=== PATIENT | female | born 1990 | race Caucasian/White ===

== ENCOUNTER 2019-04-21 15:59 | Emergency (ER) | payer OTHER ==
[2019-04-21] MEDS ORDERED: BABY ASPIRIN 81 MG CHEW PO ONE (16:58)
[2019-04-21] MEDS ORDERED: BABY ASPIRIN 81 MG CHEW ONE (17:01)
[2019-04-21 17:30] LABS: Absolute Neutrophil Ct (ANC) 3.14 (1.4-6.9); Hematocrit 40.2 % (35-47); Hemoglobin 13.9 gm/dl (12.0-16.0); Mean Corpuscular Hemoglobin 30.1 pg (26-32); Mean Corpuscular Hgb Concent. 34.6 g/dl (32-36); Platelet Count 236 K/mm3 (150-450); Red Blood Count 4.62 M/mm3 (4.1-5.4); Red Cell Distribution Width 12.4 % (11.5-14.0); White Blood Count 4.2 K/mm3 (4.0-10.5)
[2019-04-21 17:42] LABS: ALBUMIN 4.4 g/dL (3.5-5.0); ALKALINE PHOSPHATASE 55 U/L (38-126); ANION GAP 12.8 MEQ/L (5-15); BLOOD UREA NITROGEN 6 mg/dL (7-17); CHLORIDE 107 mmol/L (98-107); Calcium 9.5 mg/dL (8.4-10.2); Carbon Dioxide 24 mmol/L (22-30); Creatinine 1 0.53 mg/dL (0.52-1.04); Glucose 99 mg/dL (74-106); Potassium 3.9 mmol/L (3.5-5.1); SGOT/AST 44 U/L (14-36); SGPT/ALT 64 U/L (0-35); SODIUM 140 mmol/L (137-145); Total Protein 7.7 g/dL (6.3-8.2)
[2019-04-21 18:22] LABS: Group A Strep NEGATIVE (NEGATIVE); INFLUENZA A POSITIVE (NEGATIVE); INFLUENZA B NEGATIVE (NEGATIVE); RESPIRATORY SYNCTIAL VIRUS NEGATIVE (Negative)
[2019-04-21 18:46] LABS: Appearance CLOUDY (CLEAR); Bilirubin NEGATIVE (NEGATIVE); Blood NEGATIVE Ery/ul (0-5); Epithelial Cells RARE /HPF (FEW); Glucose NEGATIVE (NEGATIVE); Ketones NEGATIVE (NEGATIVE); Leukocyte Esterase TRACE (NEGATIVE); Mucus SLIGHT /HPF (NEGATIVE); Nitrite NEGATIVE (NEGATIVE); Protein,Urine Dip NEGATIVE (Negative); Specific Gravity 1.012 (1.005-1.025); Urobilinogen NEGATIVE mg/dL (0-1)
[2019-04-21] MEDS ORDERED: Sodium Chloride 0.9% 1000 ML 1,000 ML IV STA (18:51)
[2019-04-21] MEDS ORDERED: Sodium Chloride 0.9% 1000 ML 1,000 ML ONE (18:57)
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
[2019-04-21 20:04] VITALS: O2SAT 97
[2019-04-21] MEDS ORDERED: Tamiflu 75MG Capsule PO ONE ×2 (20:06→20:07)
[2019-04-21 20:11] VITALS: BP 125/93; PULSE 100
[2019-04-21 23:36] LABS: Lymphocytes 20 % (24-44); Monocyte 6 % (0.0-12.0); Neutrophils 74 % (36.0-66.0); Total Cells Counted 100
[2019-04-21 23:37] LABS: Platelet Estimate NORMAL (NORMAL)
--- NOTE | 2019-04-22 08:43 | XRAY ---
Indication: Fever and cough. Comparison: December 09, 2017. Portable chest again demonstrates normal heart, lungs, and bony thorax with incidental tiny calcified granulomas.
== END 2019-04-21 20:18 | disposition home or self-care (01) ==
LOC: ED 15:59
DX: J10.1 Influenza due to other identified influenza virus with other respiratory manifestations (principal); R07.89 Other chest pain
CPT/HCPCS: 36000; 36415; 71045; 80053; 81001; 84484; 84703; 85025; 85379; 87631; 87651; 93005; 93041; 94760; 96360; 99284; A9270-GY

== ENCOUNTER 2019-06-06 09:15 | Emergency (ER) | payer OTHER ==
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
[2019-06-06] MEDS ORDERED: TORAdol 30 mg Injection IV ONE (09:45)
[2019-06-06] MEDS ORDERED: Sodium Chloride 0.9% 1000 ML 1,000 ML IV STA (09:45)
[2019-06-06] MEDS ORDERED: Hydromorphone 1 mg/ml Ampule IV ONE ×2 (09:45→11:31)
[2019-06-06] MEDS ORDERED: Zofran 4 MG/2 ML VIAL IV ONE (09:45)
[2019-06-06] MEDS ORDERED: TORAdol 30 mg Injection ONE (09:56)
[2019-06-06] MEDS ORDERED: Zofran 4 MG/2 ML VIAL ONE (09:56)
[2019-06-06] MEDS ORDERED: Sodium Chloride 0.9% 1000 ML 1,000 ML ONE (09:57)
[2019-06-06] MEDS ORDERED: Hydromorphone 1 mg/ml Ampule ONE ×2 (09:57→11:32)
--- NOTE | 2019-06-06 10:47 | XRAY ---
Indication: Right abdomen/flank pain. Multiple contiguous axial images obtained through the abdomen and pelvis without contrast using renal stone protocol. Comparison: July 24, 2016. Lung bases again demonstrates minimal subsegmental atelectasis/scarring without infiltrate or effusion. Heart is not enlarged. New 3 mm distal right ureter calculus just proximal to the UVJ. Proximal right ureter minimally prominent along with minimal hydronephrosis consistent with partial obstructive uropathy. No perinephric fluid. Noncontrasted stomach and bowel loops appear nonobstructed. Normal appendix. There has been interval cholecystectomy. Stable calcified splenic granulomas. Remaining liver, pancreas, spleen, adrenal glands, kidneys, ureters, bladder, uterus, and aorta appear unremarkable for noncontrast exam. Osseous structures intact. Impression: New 3 mm distal right ureter calculus producing minimal partial obstruction.
[2019-06-06 10:52] LABS: Appearance CLOUDY (CLEAR); Bilirubin NEGATIVE (NEGATIVE); Blood LARGE Ery/ul (0-5); Epithelial Cells RARE /HPF (FEW); Glucose NEGATIVE (NEGATIVE); Ketones NEGATIVE (NEGATIVE); Leukocyte Esterase NEGATIVE (NEGATIVE); Mucus SLIGHT /HPF (NEGATIVE); Nitrite NEGATIVE (NEGATIVE); Protein,Urine Dip 30 (Negative); Specific Gravity 1.015 (1.005-1.025); Urobilinogen NEGATIVE mg/dL (0-1)
[2019-06-06 10:56] VITALS: PULSE 71
[2019-06-06 10:59] LABS: Bacteria FEW /HPF (NEGATIVE); RBC >101 /HPF (0-2)
[2019-06-06 11:46] VITALS: BP 134/74; O2SAT 96
== END 2019-06-06 12:09 | disposition home or self-care (01) ==
LOC: ED 09:15
DX: N20.1 Calculus of ureter (principal); R10.31 Right lower quadrant pain; R10.9 Unspecified abdominal pain; R11.0 Nausea; Z79.899 Other long term (current) drug therapy; I10 Essential (primary) hypertension; K58.9 Irritable bowel syndrome, unspecified
CPT/HCPCS: 36000; 74176; 81001; 87086; 96360; 96374; 96375; 96376; 99284; J1170; J1885; J2405

== ENCOUNTER 2020-11-30 00:10 | Emergency (ER) | payer OTHER ==
[2020-11-30] MEDS ORDERED: solu-MEDROL 125 MG, Sterile H2O 10 ml 2 ML IM ONE ×2 (00:29)
[2020-11-30] MEDS ORDERED: BENADRYL 50 MG/ML IM ONE (00:29)
[2020-11-30] MEDS ORDERED: Pepcid 20 MG PO ONE (00:29)
[2020-11-30] MEDS ORDERED: solu-MEDROL ONE (00:36)
[2020-11-30] MEDS ORDERED: Pepcid 20 MG ONE (00:36)
[2020-11-30] MEDS ORDERED: Sterile H2O 10 ml IJ ONE (00:36)
[2020-11-30] MEDS ORDERED: BENADRYL 50 MG/ML ONE (00:36)
--- NOTE | 2020-11-30 00:36 | ERPHSYRPT ---
- History of Present Illness Time Seen by Provider: 11/30/20 00:29 Source: patient Exam Limitations: no limitations Physician History: 30 years old female with a history of type 2 diabetes mellitus presented in the ER with chief complaint of upper lip swelling around 5 PM last evening sudden onset after she used a new face wash. She took 2 Benadryl's prior to arrival but still have swelling upper lip. She is complaining of dryness of mouth but denies any difficulty breathing or swallowing. No swelling of tongue. No lower lip swelling. No itching or rash anywhere else. Timing/Duration: hour(s) (7), constant, sudden, worse Severity: moderate Associated Symptoms: denies symptoms Allergies/Adverse Reactions: No Known Drug Allergies Allergy (Verified 11/30/20 00:31) Home Medications: Metoprolol Succinate 25 mg PO DAILY 04/21/19 [History] Spironolactone 100 mg PO DAILY 04/21/19 [History] l-Norgest/E.estradiol-E.estrad [Ashlyna 0.15-0.03-0.01 mg Tab] 1 tab PO DAILY 06/06/19 [History] Metformin HCl 500 mg [Glucophage 500 MG] 500 mg PO BID 11/30/20 [History] Hx Tetanus, Diphtheria Vaccination/Date Given: No Hx Influenza Vaccination/Date Given: No Hx Pneumococcal Vaccination/Date Given: No Travel Risk - International Travel Have you traveled outside of the country in past 3 weeks: No - Coronavirus Screening Are you exhibiting any of the following symptoms?: No Close contact with a COVID-19 positive Pt in past 14-21 Days: No - Review of Systems Constitutional: No Symptoms Eyes: No Symptoms Ears, Nose, & Throat: Mouth Swelling Respiratory: No Symptoms Cardiac: No Symptoms Genitourinary Symptoms: No Symptoms Musculoskeletal: No Symptoms Skin: No Symptoms Neurological: No Symptoms Psychological: Anxiety Endocrine: No Symptoms Hematologic/Lymphatic: No Symptoms - Past Medical History Pertinent Past Medical History: Yes Neurological History: No Pertinent History ENT History: No Pertinent History Cardiac History: Hypertension Respiratory History: No Pertinent History Endocrine Medical History: No Pertinent History Musculoskeletal History: No Pertinent History GI Medical History: Irritable Bowel History: Other (ureterolithiasis) Psycho-Social History: Anxiety Female Reproductive Disorders: No Pertinent History Other Medical History: dump syndrome - Past Surgical History Past Surgical History: Yes Neuro Surgical History: No Pertinent History Cardiac: No Pertinent History Respiratory: No Pertinent History Gastrointestinal: Cholecystectomy Genitourinary: No Pertinent History Musculoskeletal: No Pertinent History Female Surgical History: No Pertinent History Other Surgical History: - Social History Smoking Status: Current every day smoker How long have you smoked: years Exposure to second hand smoke: Yes Drug Use: none Patient Lives Alone: No - Nursing Vital Signs Nursing Vital Signs: Initial Vital Signs Temperature 97.7 F 11/30/20 00:11 Pulse Rate 96 H 11/30/20 00:11 Respiratory Rate 20 11/30/20 00:11 Blood Pressure 138/80 11/30/20 00:11 O2 Sat by Pulse Oximetry 99 11/30/20 00:11 Pain Scale Pain Intensity 0 - Physical Exam General Appearance: no apparent distress, alert Eye Exam: PERRL/EOMI, eyes nml inspection Ears, Nose, Throat Exam: TMs normal, pharynx normal, other (Upper lip swelling especially on the middle and right. No tongue swelling. Posterior pharynx Well visible. No swelling floor of mouth.) Neck Exam: normal inspection, non-tender, supple, full range of motion Respiratory Exam: normal breath sounds, lungs clear Cardiovascular Exam: regular rate/rhythm, normal heart sounds Extremity Exam: normal inspection, normal range of motion Neurologic Exam: alert, oriented x 3, cooperative Skin Exam: normal color SpO2 Interpretation: normal SpO2: 99 O2 Delivery: Room Air Ordered Tests: Medication Summary Discontinued Medications Generic Name Dose Route Start Last Admin Trade Name Freq PRN Reason Stop Dose Admin Methylprednisolone Sodium 0 mg 11/30/20 00:29 11/30/20 00:38 Succinate 125 mg/ Sterile IM 11/30/20 00:30 125 mg Water 2 ml STAT ONE Administration Diphenhydramine HCl 25 mg 11/30/20 00:29 11/30/20 00:38 Benadryl 50 Mg/Ml IM 11/30/20 00:30 25 mg STAT ONE Administration Diphenhydramine HCl Confirm 11/30/20 00:36 Benadryl 50 Mg/Ml Administered 11/30/20 00:37 Dose 50 mg .ROUTE .STK-MED ONE Famotidine 40 mg 11/30/20 00:29 11/30/20 00:39 Pepcid 20 Mg PO 11/30/20 00:30 40 mg STAT ONE Administration Famotidine Confirm 11/30/20 00:36 Pepcid 20 Mg Administered 11/30/20 00:37 Dose 40 mg .ROUTE .STK-MED ONE Methylprednisolone Sodium Succinate Confirm 11/30/20 00:36 Solu-Medrol Administered 11/30/20 00:37 Dose 125 mg .ROUTE .STK-MED ONE Sterile Water Confirm 11/30/20 00:36 Sterile H2o 10 Ml Administered 11/30/20 00:37 Dose 10 ml IJ .STK-MED ONE - Progress Progress: improved Progress Note: 11/30/20 She is given steroid, Benadryl and Pepcid, on reevaluation swelling is improving. She has no signs of anaphylaxis, angioedema. We will continue with these meds to go home. Discussed blood sugar monitoring being on steroids. Discussed signs symptoms of worsening needing return to ER which she seems understanding. Stable for discharge. - Departure Departure Disposition: Home Clinical Impression: Swelling of upper lip Allergic reaction Qualifiers: Encounter type: initial encounter Qualified Code(s): T78.40XA - Allergy, unspecified, initial encounter Condition: Stable Critical Care Time: No Referrals: CRISELDA RAMSEY [Primary Care Provider] - (1-2 days for reevaluation) Instructions: Angioedema (DC), Anaphylaxis (DC) Additional Instructions: Continue with steroid, Benadryl, Pepcid. do not use your new face wash. Return to ER if have swelling tongue, floor of mouth, lower lip, difficulty breathing or swallowing etc. monitor your blood sugar regularly as it may go up with being on steroid and take an extra dose of Metformin and call your primary care. Prescriptions: Diphenhydramine HCl 25 mg [Benadryl 25 mg Capsule] 25 mg PO Q4H PRN PRN #20 capsule PRN Reason: Allergies Prednisone 20 mg [Deltasone 20 mg] 60 mg PO DAILY 5 Days #15 tablet Famotidine 20 mg [Pepcid 20 MG] 20 mg PO BID #10 tablet
[2020-11-30 01:02] VITALS: BP 137/91; PULSE 74
[2020-12-02 07:58] VITALS: O2SAT 99
== END 2020-11-30 01:03 | disposition home or self-care (01) ==
LOC: ED 00:10
DX: T78.40XA Allergy, unspecified, initial encounter (principal); K13.0 Diseases of lips
CPT/HCPCS: 96372; 99283; 99291; J1200; J2930; A9270-GY

== ENCOUNTER 2022-01-03 20:39 | Emergency (ER) | payer OTHER ==
--- NOTE | 2022-01-03 21:59 | ERPHSYRPT ---
- History of Present Illness Source: patient Exam Limitations: no limitations Patient Subjective Stated Complaint: pt states "I was in the kitchen cooking and hit my toe on a cabinet." Triage Nursing Assessment: pt ambulated into er; pt is axo x4; c/o toe injury; pt states 4/10 pain to left 5th toe; left 5th toe is deformed; strong left pedal pulse; good cap refill to LLE; swelling to left foot; tachycardic Physician History: 31 yo wf w L 5th toe pain after stumping it on a plastic storage shelf in her kitchen before arrival. Pt states that her pain is mild and worse w movement and weight bearing. No other injuries are reported. Method of Injury: direct blow Occurred: just prior to arrival Quality: aching Severity of Pain-Max: moderate Severity of Pain-Current: mild Lower Extremities Pain: 5th toe: left Modifying Factors: Improves With: movement Associated Symptoms: none Allergies/Adverse Reactions: No Known Drug Allergies Allergy (Verified 01/03/22 21:22) Home Medications: Metoprolol Succinate 25 mg PO DAILY 04/21/19 [History] Spironolactone 100 mg PO DAILY 04/21/19 [History] Metformin HCl 500 mg [Glucophage 500 MG] 500 mg PO BID 11/30/20 [History] Loratadine [Claritin] 10 mg PO DAILY 01/03/22 [History] Norethindrone 0.35 mg PO 01/03/22 [History] Semaglutide [Ozempic] 0.5 mg SQ WEEKLY 01/03/22 [History] Hx Tetanus, Diphtheria Vaccination/Date Given: Yes Hx Influenza Vaccination/Date Given: No Hx Pneumococcal Vaccination/Date Given: No Travel Risk - International Travel Have you traveled outside of the country in past 3 weeks: No - Coronavirus Screening Are you exhibiting any of the following symptoms?: No Close contact with a COVID-19 positive Pt in past 14-21 Days: No - Vaccine Status Have you recieved a Covid-19 vaccination: Yes 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[employer] - Vaccination Dates Date of 2cond Vaccination (if applicable): 10/10/20 - Review of Systems Constitutional: No Symptoms Eyes: No Symptoms Ears, Nose, & Throat: No Symptoms Respiratory: No Symptoms Cardiac: No Symptoms Abdominal/Gastrointestinal: No Symptoms Genitourinary Symptoms: No Symptoms Skin: No Symptoms Neurological: No Symptoms Psychological: No Symptoms Endocrine: No Symptoms Hematologic/Lymphatic: No Symptoms Immunological/Allergic: No Symptoms - Past Medical History Pertinent Past Medical History: Yes Neurological History: No Pertinent History ENT History: No Pertinent History Cardiac History: Hypertension Respiratory History: No Pertinent History Endocrine Medical History: Diabetes Type II Musculoskeletal History: No Pertinent History GI Medical History: Irritable Bowel History: Other Psycho-Social History: Anxiety Female Reproductive Disorders: No Pertinent History Other Medical History: dump syndrome - Past Surgical History Past Surgical History: Yes Neuro Surgical History: No Pertinent History Cardiac: No Pertinent History Respiratory: No Pertinent History Gastrointestinal: Cholecystectomy Genitourinary: No Pertinent History Musculoskeletal: Orthopedic Surgery Female Surgical History: No Pertinent History Other Surgical History: - Social History Smoking Status: Former smoker How long have you smoked: years Exposure to second hand smoke: No Drug Use: none Patient Lives Alone: No Significant Family History: no pertinent family hx - Female History Hx Now: No - Nursing Vital Signs Nursing Vital Signs: Initial Vital Signs Temperature 97.7 F 01/03/22 21:26 Pulse Rate 105 H 01/03/22 21:26 Blood Pressure 139/62 01/03/22 21:26 O2 Sat by Pulse Oximetry 97 01/03/22 21:26 Pain Scale Pain Intensity 1 Mildly tachy - Physical Exam General Appearance: no apparent distress Eyes, Ears, Nose, Throat Exam: normal ENT inspection Neck Exam: normal inspection, non-tender, No Brudzinski, No Kernig's, No meningismus Cardiovascular/Respiratory Exam: normal breath sounds, heart sounds normal, tachycardia Gastrointestinal/Abdominal Exam: non-tender, soft Back Exam: normal inspection, normal range of motion, No CVA tenderness, No vertebral tenderness Hips Exam: bilateral: non-tender, normal inspection, normal range of motion Knees Exam: bilateral knee: non-tender, normal inspection, normal range of motion, no evidence of injury Ankle Exam: bilateral ankle: non-tender, normal inspection, normal range of motion, no evidence of injury Foot Exam: left foot: pain (TTP L 5th toe w mild TTP/Mild edema/Good capillary return and sensation) Neuro/Tendon Exam: normal sensation, normal motor functions, normal tendon functions, responds to pain, no evidence tendon injury, No motor deficit, No sensory deficit Mental Status Exam: alert, oriented x 3, cooperative Skin Exam: normal color, warm, dry, No rash SpO2 Interpretation: normal SpO2: 97 O2 Delivery: Room Air - Course Nursing assessment & vital signs reviewed: Yes - Radiology Exams Foot X-ray Interpretation: Interpreted by me (5th phalanyx fx) Ordered Tests: Active Orders 24 hr Category Date Time Status FOOT (MINIMUM 3 VIEWS) Stat Exams 01/03/22 23:36 Taken - Progress Progress: improved Progress Note: 01/03/22 23:34 Pt refuses all pain meds 5th toe L foot pete taped to 4th per nursing/NVI 01/04/22 01:02 Counseled pt/family regarding: diagnosis, need for follow-up, rad results - Departure Departure Disposition: Home Clinical Impression: Toe fracture, left Condition: Stable Critical Care Time: No Referrals: CRISELDA LUNDBERG [Primary Care Provider] - Follow up/PCP as directed ROBYN VALADEZ DPM [ACTIVE STAFF] - Follow up/PCP as directed Instructions: Toe Injury (DC) Additional Instructions: Ice for 12-24 hours Motrin/Tylenol for pain Follow up with your family MD or Dr. Negron
[2022-01-03 23:34] VITALS: BP 131/74; PULSE 101
[2022-01-03 23:36] VITALS: O2SAT 97
--- NOTE | 2022-01-04 06:30 | XRAY ---
Indication: Blunt trauma. Comparison: None 3 nonweightbearing views left foot demonstrates nondisplaced fracture shaft 5th proximal phalanx with soft tissue swelling. Incidental tiny heel spur. No other bony, articular, or soft tissue abnormalities.
== END 2022-01-03 23:46 | disposition home or self-care (01) ==
LOC: ED 20:39
DX: S92.502A Displaced unspecified fracture of left lesser toe(s), initial encounter for closed fracture (principal); W22.03XA Walked into furniture, initial encounter; Y93.G1 Activity, food preparation and clean up; Y92.000 Kitchen of unspecified non-institutional (private) residence as the place of occurrence of the external cause; I10 Essential (primary) hypertension; E11.9 Type 2 diabetes mellitus without complications; Z79.84 Long term (current) use of oral hypoglycemic drugs; Z79.899 Other long term (current) drug therapy
CPT/HCPCS: 73630; 99282

== ENCOUNTER 2022-02-19 14:02 | Emergency (ER) | payer OTHER ==
--- NOTE | 2022-02-19 14:06 | ERPHSYRPT ---
- History of Present Illness Time Seen by Provider: 02/19/22 14:05 Historian: patient Exam Limitations: no limitations Physician History: This is a 32-year-old white female patient of Dr. Deven Crawford who presents with sudden onset of right upper quadrant and right flank pain that began approximately 930 this morning. Is relatively sudden in onset. She has had ass ociated nausea but no vomiting or diarrhea. Patient does have a history of cholecystectomy in the past. She also has a history of left ureteral stone in the past. She has had a section in the past as well. Patient has had no dysuria or urinary frequency. She has had no vaginal bleeding. Patient does have a history of diabetes, hypertension, irritable bowel syndrome and anxiety. Timing/Duration: today Activities at Onset: none Quality: aching Abdominal Pain Onset Location: RUQ, flank (Right) Pain Radiation: flank (Right) Severity of Pain-Max: mild (To moderate) Severity of Pain-Current: mild (To moderate) Modifying Factors: Improves With: nothing Associated Symptoms: nausea Previous symptoms: no prior history Allergies/Adverse Reactions: No Known Drug Allergies Allergy (Verified 02/19/22 14:12) Home Medications: Metoprolol Succinate 25 mg PO DAILY 04/21/19 [History] Spironolactone 100 mg PO DAILY 04/21/19 [History] Metformin HCl 500 mg [Glucophage 500 MG] 500 mg PO BID 11/30/20 [History] Loratadine [Claritin] 10 mg PO DAILY 01/03/22 [History] Norethindrone 0.35 mg PO 01/03/22 [History] Semaglutide [Ozempic] 0.5 mg SQ WEEKLY 01/03/22 [History] Hx Tetanus, Diphtheria Vaccination/Date Given: Yes Hx Influenza Vaccination/Date Given: No Hx Pneumococcal Vaccination/Date Given: No Travel Risk - International Travel Have you traveled outside of the country in past 3 weeks: No - Coronavirus Screening Are you exhibiting any of the following symptoms?: No Close contact with a COVID-19 positive Pt in past 14-21 Days: No - Vaccine Status Have you recieved a Covid-19 vaccination: Yes 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[employer] - Vaccination Dates Date of 2cond Vaccination (if applicable): 10/10/20 - Review of Systems Constitutional: No Symptoms Eyes: No Symptoms Ears, Nose, & Throat: No Symptoms Respiratory: No Symptoms Cardiac: No Symptoms Abdominal/Gastrointestinal: Abdominal Pain, Nausea, No Vomiting, No Diarrhea, No Constipation Genitourinary Symptoms: No Symptoms Musculoskeletal: No Symptoms Skin: No Symptoms Neurological: No Symptoms Psychological: No Symptoms Endocrine: No Symptoms Hematologic/Lymphatic: No Symptoms Immunological/Allergic: No Symptoms All Other Systems: Reviewed and Negative - Past Medical History Pertinent Past Medical History: Yes Neurological History: No Pertinent History ENT History: No Pertinent History Cardiac History: Hypertension Respiratory History: No Pertinent History Endocrine Medical History: Diabetes Type II Musculoskeletal History: No Pertinent History GI Medical History: Irritable Bowel History: Other Psycho-Social History: Anxiety Female Reproductive Disorders: No Pertinent History Other Medical History: dump syndrome - Past Surgical History Past Surgical History: Yes Neuro Surgical History: No Pertinent History Cardiac: No Pertinent History Respiratory: No Pertinent History Gastrointestinal: Cholecystectomy Genitourinary: No Pertinent History Musculoskeletal: Orthopedic Surgery Female Surgical History: No Pertinent History Other Surgical History: - Social History Smoking Status: Former smoker How long have you smoked: years Exposure to second hand smoke: No Drug Use: none Patient Lives Alone: No Significant Family History: no pertinent family hx - Nursing Vital Signs Nursing Vital Signs: Initial Vital Signs Temperature 97.3 F 02/19/22 14:14 Pulse Rate 107 H 02/19/22 14:14 Respiratory Rate 18 02/19/22 14:14 Blood Pressure 133/63 02/19/22 14:14 O2 Sat by Pulse Oximetry 96 02/19/22 14:14 Pain Scale Pain Intensity 6 - Physical Exam General Appearance: no apparent distress, alert, anxiety, obese Eye Exam: PERRL/EOMI, eyes nml inspection Ears, Nose, Throat Exam: normal ENT inspection, moist mucous membranes Neck Exam: normal inspection, non-tender, supple, full range of motion Respiratory Exam: normal breath sounds, lungs clear, airway intact, No chest tenderness, No respiratory distress Cardiovascular Exam: tachycardia Gastrointestinal/Abdomen Exam: soft, normal bowel sounds, tenderness (Right upper quadrant), guarding (Mild right upper quadrant to palpation), No rebound Pelvic Exam: not done Rectal Exam: not done Back Exam: normal inspection, normal range of motion, No CVA tenderness, No vertebral tenderness Extremity Exam: normal inspection, normal range of motion, pelvis stable Neurologic Exam: alert, oriented x 3, cooperative, 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, normal mood/affect, nml cerebellar function, nml station & gait, sensation nml Skin Exam: normal color, warm, dry Lymphatic Exam: No adenopathy SpO2 Interpretation: normal O2 Delivery: Room Air - Course Nursing assessment & vital signs reviewed: Yes Ordered Tests: Active Orders 24 hr Category Date Time Status IV Insertion STAT Care 02/19/22 14:37 Active ABDOMEN AND PELVIS W/0 CONTRAS [CT] Stat Exams 02/19/22 14:38 Completed AMYLASE Stat Lab 02/19/22 14:50 Completed CBC W DIFF Stat Lab 02/19/22 14:50 Completed CMP Stat Lab 02/19/22 14:50 Completed LIPASE Stat Lab 02/19/22 14:50 Completed UA W/RFX CULTURE Stat Lab 02/19/22 14:39 Completed Medication Summary Discontinued Medications Generic Name Dose Route Start Last Admin Trade Name Freq PRN Reason Stop Dose Admin Hydromorphone HCl 1 mg 02/19/22 14:37 Hydromorphone 1 Mg/1ml Inj 1 Mg/Ml Syringe IV 02/19/22 14:38 STAT ONE Hydromorphone HCl Confirm 02/19/22 14:42 Hydromorphone 1 Mg/1ml Inj 1 Mg/Ml Syringe Administered 02/19/22 14:43 Dose 1 mg .ROUTE .STK-MED ONE Sodium Chloride 1,000 mls @ 999 mls/hr 02/19/22 14:37 02/19/22 15:53 Sodium Chloride 0.9% 1000 Ml IV 02/19/22 15:37 Infused .Q1H1M STA Infusion Sodium Chloride Confirm 02/19/22 14:42 Sodium Chloride 0.9% 1000 Ml Administered 02/19/22 14:43 Dose 1,000 mls @ ud .ROUTE .STK-MED ONE Ketorolac Tromethamine 30 mg 02/19/22 14:37 02/19/22 14:48 Ketorolac Tromethamine 30 Mg/Ml Inj IV 02/19/22 14:38 30 mg STAT ONE Administration Ketorolac Tromethamine Confirm 02/19/22 14:42 Ketorolac Tromethamine 30 Mg/Ml Inj Administered 02/19/22 14:43 Dose 30 mg .ROUTE .STK-MED ONE Ondansetron HCl 4 mg 02/19/22 14:37 02/19/22 14:46 Ondansetron Hcl 4 Mg/2 Ml Vial IV 02/19/22 14:38 4 mg STAT ONE Administration Ondansetron HCl Confirm 02/19/22 14:42 Ondansetron Hcl 4 Mg/2 Ml Vial Administered 02/19/22 14:43 Dose 4 mg .ROUTE .STK-MED ONE Lab/Rad Data: Laboratory Result Diagrams 02/19/22 14:50 02/19/22 14:50 Laboratory Results 02/19/22 02/19/22 02/19/22 Range/Units 14:50 14:50 14:39 WBC 9.0 (4.0-10.5) x10^3/uL RBC 4.92 (4.1-5.4) x10^6/uL Hgb 14.8 (12.0-16.0) g/dL Hct 44.0 (35-47) % MCV 89.4 (78-100) fL MCH 30.1 (26-32) pg MCHC 33.6 (32-36) g/dL RDW 12.0 (11.5-14.0) % Plt Count 323 (150-450) x10^3/uL MPV 11.2 H (7.5-11.0) fL Gran % 54.7 (36.0-66.0) % Immature Gran % (Auto) 0.3 (0.00-0.4) % Nucleat RBC Rel Count 0.0 (0.00-0.1) % Eos # (Auto) 0.08 (0-0.5) x10^3/uL Immature Gran # (Auto) 0.03 (0.00-0.03) x10^3u/L Absolute Lymphs (auto) 3.32 (1.0-4.6) x10^3/uL Absolute Monos (auto) 0.59 (0.0-1.3) x10^3/uL Absolute Nucleated RBC 0.00 (0.00-0.01) x10^3u/L Lymphocytes % 36.8 (24.0-44.0) % Monocytes % 6.5 (0.0-12.0) % Eosinophils % 0.9 (0.00-5.0) % Basophils % 0.8 (0.0-0.4) % Absolute Granulocytes 4.94 (1.4-6.9) x10^3/uL Basophils # 0.07 (0-0.4) x10^3/uL Sodium 136 L (137-145) mmol/L Potassium 4.6 D (3.5-5.1) mmol/L Chloride 104 (98-107) mmol/L Carbon Dioxide 21 L (22-30) mmol/L Anion Gap 15.2 H (5-15) MEQ/L BUN 11 (7-17) mg/dL Creatinine 0.68 (0.52-1.04) mg/dL Estimated GFR > 60.0 ML/MIN Glucose 116 H (74-106) mg/dL Calcium 9.9 (8.4-10.2) mg/dL Total Bilirubin 1.90 H (0.2-1.3) mg/dL AST 36 (14-36) U/L ALT 39 H (0-35) U/L Alkaline Phosphatase 38 (38-126) U/L Serum Total Protein 8.2 (6.3-8.2) g/dL Albumin 5.1 H (3.5-5.0) g/dL Amylase 43 (30-110) U/L Lipase 115 (23-300) U/L Urinalys Dipstick Clnc MAIN LAB Urine Color YELLOW (YELLOW) Urine Appearance CLEAR (CLEAR) Urine pH 6.5 (5-6) Ur Specific [place] 1.025 (1.005-1.025) POC Urine Protein Conf NEGATIVE (Negative) Urine Ketones NEGATIVE (NEGATIVE) Urine Nitrite NEGATIVE (NEGATIVE) Urine Bilirubin NEGATIVE (NEGATIVE) Urine Urobilinogen 0.2 (0-1) mg/dL Urine Leukocytes NEGATIVE (NEGATIVE) Urine WBC (Auto) NONE (0-5) /HPF Urine RBC (Auto) NONE (0-2) /HPF U Epithel Cells (Auto) RARE (FEW) /HPF Urine Bacteria (Auto) RARE (NEGATIVE) /HPF Urine RBC NEGATIVE (0-5) Ray/ul Urine Mucus (Auto) SLIGHT (NEGATIVE) /HPF Ur Culture Indicated? NO Urine Glucose NEGATIVE (NEGATIVE) mg/dL - Progress Progress: improved, pain not gone completely Progress Note: 02/19/22 16:05 CAT scan of the abdomen pelvis without contrast is negative for any acute intra-abdominal process. The appendix is visualized and it is normal Counseled pt/family regarding: lab results, diagnosis, need for follow-up, rad results - Departure Departure Disposition: Home Clinical Impression: Right-sided abdominal pain of unknown etiology Condition: Stable Critical Care Time: No Referrals: CRISELDA LUNDBERG [Primary Care Provider] - Follow up/PCP as directed Additional Instructions: Drink plenty of clear liquids. Avoid fatty greasy spicy foods. Follow-up with your primary care provider for further evaluation management. Use Tylenol and ibuprofen for pain control Prescriptions: Ondansetron ODT 4 MG [Zofran Odt 4 mg] 4 mg PO Q6H PRN PRN #10 tablet PRN Reason: Vomiting
[2022-02-19] MEDS ORDERED: Sodium Chloride 0.9% 1000 ML 1,000 ML IV STA (14:37)
[2022-02-19] MEDS ORDERED: TORAdol 30 mg Injection IV ONE (14:37)
[2022-02-19] MEDS ORDERED: Hydromorphone 1 mg/ml Injection IV ONE (14:37)
[2022-02-19] MEDS ORDERED: Zofran 4 MG/2 ML VIAL IV ONE (14:37)
[2022-02-19] MEDS ORDERED: TORAdol 30 mg Injection ONE (14:42)
[2022-02-19] MEDS ORDERED: Zofran 4 MG/2 ML VIAL ONE (14:42)
[2022-02-19] MEDS ORDERED: Hydromorphone 1 mg/ml Injection ONE (14:42)
[2022-02-19] MEDS ORDERED: Sodium Chloride 0.9% 1000 ML 1,000 ML ONE (14:42)
[2022-02-19 14:52] LABS: Absolute Neutrophil Ct (ANC) 4.94 x10^3/uL (1.4-6.9); Basophil (Absolute #) 0.07 x10^3/uL (0-0.4); Eosinophil % 0.9 % (0.00-5.0); Eosinophil (Absolute #) 0.08 x10^3/uL (0-0.5); Hemoglobin 14.8 g/dL (12.0-16.0); Lymphocyte (Absolute #) 3.32 x10^3/uL (1.0-4.6); Lymphocytes % 36.8 % (24.0-44.0); Mean Cell Volume 89.4 fL (78-100); Mean Corpuscular Hemoglobin 30.1 pg (26-32); Mean Corpuscular Hgb Concent. 33.6 g/dL (32-36); Mean Platelet Volume 11.2 fL (7.5-11.0); Monocyte (Absolute #) 0.59 x10^3/uL (0.0-1.3); Monocytes % 6.5 % (0.0-12.0); Neutrophil % 54.7 % (36.0-66.0); Platelet Count 323 x10^3/uL (150-450); Red Blood Count 4.92 x10^6/uL (4.1-5.4)
[2022-02-19 14:56] LABS: Appearance CLEAR (CLEAR); Bilirubin NEGATIVE (NEGATIVE); Dipstick done @ ? MAIN LAB; Glucose NEGATIVE (NEGATIVE); Ketones NEGATIVE (NEGATIVE); Nitrite NEGATIVE (NEGATIVE); Ph 6.5 (5-6); Protein,Urine Dip NEGATIVE (Negative); RBC NEGATIVE Ery/ul (0-5); Specific Gravity 1.025 (1.005-1.025); Urobilinogen 0.2 mg/dL (0-1)
[2022-02-19 14:57] LABS: Bacteria RARE /HPF (NEGATIVE); Epithelial Cells RARE /HPF (FEW); Mucus SLIGHT /HPF (NEGATIVE)
[2022-02-19 15:01] LABS: Urine Cultured Indicated? NO
[2022-02-19 15:06] LABS: ALBUMIN 5.1 g/dL (3.5-5.0); ALKALINE PHOSPHATASE 38 U/L (38-126); AMYLASE 43 U/L (30-110); ANION GAP 15.2 MEQ/L (5-15); BLOOD UREA NITROGEN 11 mg/dL (7-17); CHLORIDE 104 mmol/L (98-107); Calcium 9.9 mg/dL (8.4-10.2); Carbon Dioxide 21 mmol/L (22-30); Creatinine 1 0.68 mg/dL (0.52-1.04); EST GLOMERULAR FILTRATION RATE > 60.0 ML/MIN; Glucose 116 mg/dL (74-106); LIPASE 115 U/L (23-300); SGOT/AST 36 U/L (14-36); SGPT/ALT 39 U/L (0-35); SODIUM 136 mmol/L (137-145); Total Protein 8.2 g/dL (6.3-8.2)
[2022-02-19 15:08] LABS: Potassium 4.6 mmol/L (3.5-5.1)
--- NOTE | 2022-02-19 15:16 | XRAY ---
Indication: Right flank pain. Multiple contiguous axial images obtained through the abdomen and pelvis without contrast using renal stone protocol. Comparison: June 06, 2019 Lung bases demonstrates small right middle lobe, subcarinal, and right infrahilar calcified nodes not previously imaged. No infiltrate or effusion. Heart not enlarged. No renal calculus or evidence for obstructive uropathy. Stomach is distended with food/fluid. Noncontrasted stomach and bowel loops appear nonobstructed with normal appendix. No free fluid/air. Again cholecystectomy and tiny hepatic/splenic calcified granulomas. Remaining liver, pancreas, spleen, adrenal glands, kidneys, ureters, bladder, uterus, and aorta are unremarkable for noncontrast exam. Osseous structures intact. No ventral or inguinal hernias. Impression: 1. Negative renal calculus or evidence for obstructive uropathy. 2. Again incidental old granulomatous disease. 3. Remaining CT abdomen/pelvis without contrast exam is negative.
[2022-02-19 17:20] VITALS: BP 126/58; PULSE 93; O2SAT 100
== END 2022-02-19 17:20 | disposition home or self-care (01) ==
LOC: ED 14:02
DX: R10.11 Right upper quadrant pain (principal); R11.0 Nausea; E11.9 Type 2 diabetes mellitus without complications; I10 Essential (primary) hypertension; Z79.84 Long term (current) use of oral hypoglycemic drugs; Z79.85 Long-term (current) use of injectable non-insulin antidiabetic drugs; Z79.899 Other long term (current) drug therapy
CPT/HCPCS: 36000; 36415; 74176; 80053; 81015; 82150; 83690; 85025; 96374; 96375; 99284; J1170; J1885; J2405

== ENCOUNTER 2022-03-17 05:33 | Emergency (ER) | payer OTHER ==
[2022-03-17] MEDS ORDERED: Sodium Chloride 0.9% 1000 ML 1,000 ML ONE (06:08)
[2022-03-17] MEDS ORDERED: TYLENOL 325 MG ONE (06:08)
[2022-03-17] MEDS: TYLENOL 325 MG PO STA (06:09)
[2022-03-17] MEDS: Sodium Chloride 0.9% 1000 ML 1,000 ML IV STA (06:09)
[2022-03-17 06:13] LABS: Absolute Neutrophil Ct (ANC) 11.18 x10^3/uL (1.4-6.9); Basophil (Absolute #) 0.07 x10^3/uL (0-0.4); Eosinophil % 0.1 % (0.00-5.0); Eosinophil (Absolute #) 0.02 x10^3/uL (0-0.5); Hematocrit 44.4 % (35-47); Lymphocyte (Absolute #) 0.94 x10^3/uL (1.0-4.6); Lymphocytes % 6.9 % (24.0-44.0); Mean Cell Volume 88.8 fL (78-100); Mean Corpuscular Hgb Concent. 33.8 g/dL (32-36); Mean Platelet Volume 9.5 fL (7.5-11.0); Monocyte (Absolute #) 1.26 x10^3/uL (0.0-1.3); Monocytes % 9.3 % (0.0-12.0); Neutrophil % 82.8 % (36.0-66.0); Platelet Count 359 x10^3/uL (150-450); White Blood Count 13.5 x10^3/uL (4.0-10.5)
[2022-03-17 06:24] LABS: ALBUMIN 5.1 g/dL (3.5-5.0); ALKALINE PHOSPHATASE 58 U/L (38-126); ANION GAP 17.1 MEQ/L (5-15); BLOOD UREA NITROGEN 11 mg/dL (7-17); CHLORIDE 103 mmol/L (98-107); Calcium 9.5 mg/dL (8.4-10.2); Carbon Dioxide 22 mmol/L (22-30); Creatinine 1 0.64 mg/dL (0.52-1.04); EST GLOMERULAR FILTRATION RATE > 60.0 ML/MIN; Glucose 181 mg/dL (74-106); Potassium 4.1 mmol/L (3.5-5.1); SGOT/AST 34 U/L (14-36); SGPT/ALT 37 U/L (0-35); SODIUM 138 mmol/L (137-145)
[2022-03-17 06:32] LABS: INFLUENZA A NEGATIVE (NEGATIVE); INFLUENZA B NEGATIVE (NEGATIVE); RESPIRATORY SYNCTIAL VIRUS NEGATIVE (Negative)
[2022-03-17 06:40] VITALS: O2SAT 98
--- NOTE | 2022-03-17 06:40 | ERPHSYRPT ---
- History of Present Illness Time Seen by Provider: 03/17/22 05:50 Source: patient Exam Limitations: no limitations Patient Subjective Stated Complaint: "last thursday I went to [facility] and had swabs and they were all negative. they gave me cefdinir for double ear infection. Last night I started running a fever" Triage Nursing Assessment: Pt ambulatory to bed by self, pt alert and oriented x3, pt c/o fever that started last night, nasal congestion and sore throat since thursday. Pt was given cefdinir for double ear infection that she started taking on thursday. pt is in no pain currently, motrin taken at 0400 but not taken any tylenol, lung sounds clear, no sign of tonsil swelling or reddness at this time Physician History: Patient is a 32-year-old white female has been sick for approximately a week. She started on Thursday with a sore throat and being hoarse. Thursday she went to [facility] and had a strep flu and COVID swab that was negative. she went back to the clinic was diagnosed with bilateral otitis media and she was switched from amoxicillin to cefdinir. Today she is running a fever and has through the night. She has a sore throat her voice is heart hoarse she has facial pain and a cough. 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: Ibuprofen, Acetaminophen, other (Amoxicillin) Associated Symptoms: cough, headache, rhinorrhea, sore throat Allergies/Adverse Reactions: No Known Drug Allergies Allergy (Verified 03/17/22 05:42) Home Medications: Metoprolol Succinate 25 mg PO DAILY 04/21/19 [History] Spironolactone 100 mg PO DAILY 04/21/19 [History] Metformin HCl 500 mg [Glucophage 500 MG] 500 mg PO BID 11/30/20 [History] Loratadine [Claritin] 10 mg PO DAILY 01/03/22 [History] Norethindrone 0.35 mg PO 01/03/22 [History] Semaglutide [Ozempic] 0.5 mg SQ WEEKLY 01/03/22 [History] Hx Tetanus, Diphtheria Vaccination/Date Given: Yes Hx Influenza Vaccination/Date Given: No Hx Pneumococcal Vaccination/Date Given: No Immunizations Up to Date: Yes Travel Risk - International Travel Have you traveled outside of the country in past 3 weeks: No - Coronavirus Screening Are you exhibiting any of the following symptoms?: No - Vaccine Status Have you recieved a Covid-19 vaccination: Yes [employer]: [employer] - Vaccination Dates Date of 2cond Vaccination (if applicable): 10/10/20 - Review of Systems Constitutional: Fever, Chills, Lethargy, Malaise Eyes: No Symptoms Ears, Nose, & Throat: No Symptoms, Throat Pain, Hoarse, Painful Swallowing Respiratory: Cough, No Dyspnea Cardiac: No Chest Pain, No Edema, No Syncope Abdominal/Gastrointestinal: No Abdominal Pain, No Nausea, No Vomiting, No Diarrhea Genitourinary Symptoms: No Dysuria Musculoskeletal: Arthralgias, Myalgias, No Back Pain, No Neck Pain Skin: No Rash Neurological: Headache, No Dizziness, No Focal Weakness, No Sensory Changes Psychological: No Symptoms Endocrine: No Symptoms All Other Systems: Reviewed and Negative - Past Medical History Pertinent Past Medical History: Yes Neurological History: No Pertinent History ENT History: No Pertinent History Cardiac History: Hypertension Respiratory History: No Pertinent History Endocrine Medical History: Diabetes Type II Musculoskeletal History: No Pertinent History GI Medical History: Irritable Bowel History: Other Psycho-Social History: Anxiety Female Reproductive Disorders: No Pertinent History Other Medical History: dump syndrome - Past Surgical History Past Surgical History: Yes Neuro Surgical History: No Pertinent History Cardiac: No Pertinent History Respiratory: No Pertinent History Gastrointestinal: Cholecystectomy Genitourinary: No Pertinent History Musculoskeletal: Orthopedic Surgery Female Surgical History: No Pertinent History Other Surgical History: - Social History Smoking Status: Former smoker How long have you smoked: years Exposure to second hand smoke: No Drug Use: none Patient Lives Alone: No Significant Family History: no pertinent family hx - Female History Hx Last Menstrual Period: 02/17/22 Hx Now: No - Nursing Vital Signs Nursing Vital Signs: Initial Vital Signs Temperature 102.1 F 03/17/22 05:42 Pulse Rate 131 H 03/17/22 05:42 Respiratory Rate 18 03/17/22 05:42 Blood Pressure 128/77 03/17/22 05:42 O2 Sat by Pulse Oximetry 98 03/17/22 05:42 Pain Scale Pain Intensity 0 - Physical Exam General Appearance: no apparent distress, moderate distress, alert Eye Exam: PERRL/EOMI ENT Exam: normal ENT inspection, TM red (TMs are red especially on the left), pharyngeal erythema (Pharyngeal edema with no exudates noted), muffled/hoarse voice, airway intact, No tonsillar exudate Neck Exam: supple, full range of motion, lymphadenopathy (R), No meningismus Respiratory Exam: normal breath sounds, lungs clear, no respiratory distress Cardiovascular/Chest Exam: normal heart sounds, regular rate/rhythm, No murmur, No edema Gastrointestinal/Abdominal Exam: soft, non tender, no distention Pelvic Exam: not done Rectal Exam: deferred Extremity Exam: non-tender, normal range of motion, normal inspection, normal capillary refill Neurologic Exam: alert, oriented x 3, cooperative, kitchen cleaner II-XII nml as tested, normal mood/affect, sensation nml, No motor deficits Skin Exam: normal color, warm, dry, No rash SpO2 Interpretation: normal SpO2: 98 O2 Delivery: Room Air - Course Nursing assessment & vital signs reviewed: Yes - Radiology Exams Chest X-ray Interpretation: Interpreted by me, Other (Negative for acute findings there is a granuloma appearing lesion in the right chest.) - CT Exams Maxillofacial Bones CT Interpretation: Other (Some minor collections in the maxillary sinuses) Ordered Tests: Active Orders 24 hr Category Date Time Status IV Insertion STAT Care 03/17/22 06:07 Active CHEST 1 VIEW (PORTABLE) Stat Exams 03/17/22 05:54 Taken SINUSES WITHOUT CONTRAST [CT] Stat Exams 03/17/22 05:58 Taken BLOOD CULTURE Stat Lab 03/17/22 06:30 Received CBC W DIFF Stat Lab 03/17/22 06:12 Completed CMP Stat Lab 03/17/22 06:12 Completed [place] Screen Stat Lab 03/17/22 06:12 Completed Medication Summary Discontinued Medications Generic Name Dose Route Start Last Admin Trade Name Lindsey PRN Reason Stop Dose Admin Acetaminophen 650 mg 03/17/22 06:06 03/17/22 06:09 Acetaminophen 325 Mg Tablet PO 03/17/22 06:07 650 mg STAT STA Administration Acetaminophen Confirm 03/17/22 06:08 Acetaminophen 325 Mg Tablet Administered 03/17/22 06:09 Dose 650 mg .ROUTE .STK-MED ONE Sodium Chloride 1,000 mls @ 999 mls/hr 03/17/22 05:55 03/17/22 06:09 Sodium Chloride 0.9% 1000 Ml IV 03/17/22 06:55 999 mls/hr .Q1H1M STA Administration Sodium Chloride Confirm 03/17/22 06:08 Sodium Chloride 0.9% 1000 Ml Administered 03/17/22 06:09 Dose 1,000 mls @ ud .ROUTE .[facility]-MED ONE Lab/Rad Data: Laboratory Result Diagrams 03/17/22 06:12 03/17/22 06:12 Laboratory Results 03/17/22 03/17/22 03/17/22 Range/Units 06:12 06:12 06:12 WBC 13.5 H (4.0-10.5) x10^3/uL RBC 5.00 (4.1-5.4) x10^6/uL Hgb 15.0 (12.0-16.0) g/dL Hct 44.4 (35-47) % MCV 88.8 (78-100) fL MCH 30.0 (26-32) pg MCHC 33.8 (32-36) g/dL RDW 12.0 (11.5-14.0) % Plt Count 359 (150-450) x10^3/uL MPV 9.5 (7.5-11.0) fL Gran % 82.8 H (36.0-66.0) % Immature Gran % (Auto) 0.4 (0.00-0.4) % Nucleat RBC Rel Count 0.0 (0.00-0.1) % Eos # (Auto) 0.02 (0-0.5) x10^3/uL Immature Gran # (Auto) 0.06 H (0.00-0.03) x10^3u/L Absolute Lymphs (auto) 0.94 L (1.0-4.6) x10^3/uL Absolute Monos (auto) 1.26 (0.0-1.3) x10^3/uL Absolute Nucleated RBC 0.00 (0.00-0.01) x10^3u/L Lymphocytes % 6.9 L (24.0-44.0) % Monocytes % 9.3 (0.0-12.0) % Eosinophils % 0.1 (0.00-5.0) % Basophils % 0.5 (0.0-0.4) % Absolute Granulocytes 11.18 H (1.4-6.9) x10^3/uL Basophils # 0.07 (0-0.4) x10^3/uL Sodium 138 (137-145) mmol/L Potassium 4.1 (3.5-5.1) mmol/L Chloride 103 (98-107) mmol/L Carbon Dioxide 22 (22-30) mmol/L Anion Gap 17.1 H (5-15) MEQ/L BUN 11 (7-17) mg/dL Creatinine 0.64 (0.52-1.04) mg/dL Estimated GFR > 60.0 ML/MIN Glucose 181 H (74-106) mg/dL Calcium 9.5 (8.4-10.2) mg/dL Total Bilirubin 1.40 H (0.2-1.3) mg/dL AST 34 (14-36) U/L ALT 37 H (0-35) U/L Alkaline Phosphatase 58 (38-126) U/L Serum Total Protein 9.0 H (6.3-8.2) g/dL Albumin 5.1 H (3.5-5.0) g/dL Monoscreen NEGATIVE (Negative) Influenza Type A Ag (NEGATIVE) Influenza Type B Ag (NEGATIVE) RSV (PCR) (Negative) SARS-CoV-2 (PCR) (NEGATIVE) Group A Strep Antibody (NEGATIVE) 03/17/22 03/17/22 Range/Units 05:55 05:55 WBC (4.0-10.5) x10^3/uL RBC (4.1-5.4) x10^6/uL Hgb (12.0-16.0) g/dL Hct (35-47) % MCV (78-100) fL MCH (26-32) pg MCHC (32-36) g/dL RDW (11.5-14.0) % Plt Count (150-450) x10^3/uL MPV (7.5-11.0) fL Gran % (36.0-66.0) % Immature Gran % (Auto) (0.00-0.4) % Nucleat RBC Rel Count (0.00-0.1) % Eos # (Auto) (0-0.5) x10^3/uL Immature Gran # (Auto) (0.00-0.03) x10^3u/L Absolute Lymphs (auto) (1.0-4.6) x10^3/uL Absolute Monos (auto) (0.0-1.3) x10^3/uL Absolute Nucleated RBC (0.00-0.01) x10^3u/L Lymphocytes % (24.0-44.0) % Monocytes % (0.0-12.0) % Eosinophils % (0.00-5.0) % Basophils % (0.0-0.4) % Absolute Granulocytes (1.4-6.9) x10^3/uL Basophils # (0-0.4) x10^3/uL Sodium (137-145) mmol/L Potassium (3.5-5.1) mmol/L Chloride (98-107) mmol/L Carbon Dioxide (22-30) mmol/L Anion Gap (5-15) MEQ/L BUN (7-17) mg/dL Creatinine (0.52-1.04) mg/dL Estimated GFR ML/MIN Glucose (74-106) mg/dL Calcium (8.4-10.2) mg/dL Total Bilirubin (0.2-1.3) mg/dL AST (14-36) U/L ALT (0-35) U/L Alkaline Phosphatase (38-126) U/L Serum Total Protein (6.3-8.2) g/dL Albumin (3.5-5.0) g/dL Monoscreen (Negative) Influenza Type A Ag NEGATIVE (NEGATIVE) Influenza Type B Ag NEGATIVE (NEGATIVE) RSV (PCR) NEGATIVE (Negative) SARS-CoV-2 (PCR) POSITIVE A (NEGATIVE) Group A Strep Antibody NOT DETECTED (NEGATIVE) - Progress Progress: improved - Departure Departure Disposition: Home Clinical Impression: COVID Condition: Stable Critical Care Time: No Referrals: CRISELDA LUNDBERG [Primary Care Provider] - Follow up/PCP as directed Instructions: COVID-19 (DC) Prescriptions: Nirmatrelvir/Ritonavir [Paxlovid 300-100 mg Pack (Eua)] 1 each PO BID 5 Days #1 packet
[2022-03-17 06:43] LABS: SARS-CoV-2 Xpert Express POSITIVE (NEGATIVE)
[2022-03-17 07:01] VITALS: BP 122/84; PULSE 123
--- NOTE | 2022-03-17 08:57 | XRAY ---
Indication: Fever and cough. Comparison: April 21, 2019 Portable chest again demonstrates normal heart, lungs, and bony thorax with incidental right lung calcified granuloma.
--- NOTE | 2022-03-17 09:03 | XRAY ---
Indication: Fever and pain. Positive Covid 19. Multiple contiguous axial images obtained through the paranasal sinuses. Sagittal and coronal reformatted images obtained. Comparison: None A few bilateral dental amalgams produces beam artifact. Mild bilateral ethmoid, minimal bilateral maxillary, and moderate left sphenoid sinus mucosal thickening. Additional mucosal thickening both ostiomeatal units and nasal passages. Minimal nasal septal deviation to the right. No acute fracture, suspicious bony lesions, or osseous destructive process. Remaining visualized noncontrasted soft tissues including orbits and base of brain are unremarkable. Impression: Paranasal sinus disease and minimal nasal septal deviation as detailed. Comment: Preliminary interpretation made by [facility]. No critical discrepancy.
== END 2022-03-17 07:21 | disposition home or self-care (01) ==
LOC: ED 05:33
DX: U07.1 COVID-19 (principal); R50.9 Fever, unspecified; J02.9 Acute pharyngitis, unspecified; R05.1 Acute cough; I10 Essential (primary) hypertension; E11.9 Type 2 diabetes mellitus without complications; Z79.84 Long term (current) use of oral hypoglycemic drugs; Z79.85 Long-term (current) use of injectable non-insulin antidiabetic drugs; Z79.899 Other long term (current) drug therapy
CPT/HCPCS: 0241U; 36000; 36415; 70486; 71045; 80053; 85025; 86308; 87040; 87651; 96360; 99284; A9270-GY